=== PATIENT | female | born 1970 | race Caucasian/White ===

== ENCOUNTER → 2021-03-09 07:59 | Outpatient (BNVA) | payer BC, SELFPAY | PROVIDERS: PCP Internal Medicine; Visit Provider Physician Assistant ==

== ENCOUNTER → 2021-05-10 08:23 | Outpatient (BNVA) | payer BC, SELFPAY | PROVIDERS: PCP Internal Medicine; Visit Provider Psychiatry & Neurology Neurology ==

== ENCOUNTER → 2022-07-18 14:52 | Outpatient (BNVA) | payer BC, SELFPAY | PROVIDERS: PCP Internal Medicine; Visit Provider Psychiatry & Neurology Neurology | DX: Z13.89 Encounter for screening for other disorder (principal) ==

== ENCOUNTER 2023-01-10 07:41 | Outpatient (AMB) | payer BC, SELFPAY ==
[2023-01-10 07:44] VITALS: BP 146/90; PULSE 56; O2SAT 95; BMI 32.5
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
== END 2023-01-10 08:03 | disposition home or self-care (01) ==
PROVIDERS: Visit Provider Psychiatry & Neurology Neurology
DX: G43.109 Migraine with aura, not intractable, without status migrainosus (principal); G47.33 Obstructive sleep apnea (adult) (pediatric)
CPT/HCPCS: 99214

== ENCOUNTER → 2023-01-10 07:41 | Outpatient (BNVA) | payer BC, SELFPAY | PROVIDERS: Visit Provider Psychiatry & Neurology Neurology ==

== ENCOUNTER 2023-07-11 07:35 | Outpatient (AMB) | payer BC, SELFPAY ==
[2023-07-11 07:42] VITALS: BP 142/76; PULSE 76; RESP 16; O2SAT 95; BMI 32.5
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
== END 2023-07-11 08:11 | disposition home or self-care (01) ==
PROVIDERS: PCP Internal Medicine; Visit Provider Psychiatry & Neurology Neurology
DX: G43.109 Migraine with aura, not intractable, without status migrainosus (principal); G47.33 Obstructive sleep apnea (adult) (pediatric)
CPT/HCPCS: 99214

== ENCOUNTER → 2023-07-11 07:35 | Outpatient (BNVA) | payer BC, SELFPAY | PROVIDERS: PCP Internal Medicine; Visit Provider Psychiatry & Neurology Neurology ==

== ENCOUNTER 2024-10-31 07:31 | Outpatient (AMB) | payer BC, SELFPAY ==
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
--- OUTSIDE RECORDS SUMMARY | 2024-10-31 07:34 | XMS_ITS | Encounter Summary ---
Author Organization [facility] Address [address] [place] [address] Care Team Providers Care New Car Inspector Name Role Phone Gerry De La Vega MD Primary Care Provider [phone] Community, Pcp Primary Care Provider Gerry Bishop MD Primary Care Provider [phone] [facility], Pcp Primary Care Provider Gerry Bishop MD Primary Care Provider [phone] Cheyenne Keith MD Unavailable Encounter Details Date Type Department Care Team Description 04/18/2016 Release of Information Medical Records [address] [place] [id number] Abstract, Provider Social History Tobacco Use Types Packs/Day Years Used Date Smoking Tobacco: Never Smokeless Tobacco: Never Alcohol Use Standard Drinks/Week Comments Yes 0 (1 standard drink = 0.6 oz pur e alcohol) once a month Sex Assigned at Date Recorded Not on file Job Start Date Occupation Industry Not on file Not on file Not on file documented as of this encounter Plan of Treatment Not on file documented as of this encounter Visit Diagnoses Not on filedocumented in this encounter Care Teams New Car Inspector Relationship Specialty Start Date End Date Gerry De La Vega MD [address] [place] [id number] PCP - General Internal Medicine 03/23/15 02/27/20 [facility], Pcp [address] [place] [id number] PCP - General Internal Medicine 02/28/20 03/17/20 Gerry De La Vega MD [address] [place] [phone] PCP - General Internal Medicine 03/18/20 05/25/20 [facility], Pcp [address] [place] [id number] PCP - General Internal Medicine 05/26/20 06/03/20 Gerry De La Vega MD [address] [place] [id number] PCP - General Internal Medicine 06/04/20 Cheyenne Keith MD [address] [place] [id number] Specialist Cardiology 10/19/21 documented as of this encounter
[2024-10-31 07:35] VITALS: BP 124/82; BMI 30.1
== END 2024-10-31 08:01 | disposition home or self-care (01) ==
LOC: HO.HSMS 07:32
PROVIDERS: PCP Internal Medicine; Visit Provider Psychiatry & Neurology Neurology
DX: G43.109 Migraine with aura, not intractable, without status migrainosus (principal); G47.33 Obstructive sleep apnea (adult) (pediatric); M54.2 Cervicalgia
CPT/HCPCS: 99214